=== PATIENT | female | born 2000 | race Caucasian/White ===

== ENCOUNTER 2019-08-10 06:56 | Emergency (ER) | payer OTHER ==
[~2019-08-10] VITALS: Ht 165.1 cm; Wt 72.6 kg
[2019-08-10] MEDS ORDERED: VENLAFAXINE HCL25 MG PO (07:10)
[2019-08-10] MEDS ORDERED: HYDROXYZINE HCL10 MG PO (07:10)
[2019-08-10] MEDS ORDERED: ATIVAN1 MG PO (07:10)
[2019-08-10] MEDS ORDERED: ONDANSETRON ODT8 MG PO (08:45)
[2019-08-10] MEDS ORDERED: NORCO 5-325 TA1 EACH PO (08:45)
--- OUTSIDE RECORDS SUMMARY | 2019-08-10 09:26 | XMS ---
PreManage Notification: AMAN WARREN Security Personnel Worker Events No recent Security Events currently on file [facility] There are no care providers on record at this time. Juancarlos has no Care Guidelines for this patient. Rodrigue VISIT COUNT (12 MO.) 1 [facility] TOTAL 1 NOTE: Visits indicate total known visits. ED/UCC VISIT TRACKING (12 MO.) 08/10/2019 06:56 [facility] TYPE: Emergency COMPLAINT: - FLANK PAIN, VOMITING INPATIENT VISIT TRACKING (12 MO.) No inpatient visits to display in this time frame [email or web address]
== END 2019-08-10 08:59 | disposition home or self-care (01) ==
LOC: ED 06:56
DX: N20.1 Calculus of ureter (principal); Z88.0 Allergy status to penicillin; Z88.5 Allergy status to narcotic agent; Z79.899 Other long term (current) drug therapy
CPT/HCPCS: 80053; 81001; 84703; 85025; 96374; 96375; 99284-25; J1885; J2405

== ENCOUNTER 2019-08-11 21:34 | Emergency (ER) | payer OTHER ==
[~2019-08-11] VITALS: Ht 165.1 cm; Wt 72.6 kg
[~2019-08-11 21:34] MED LIST: ATIVAN1 MG PO; HYDROXYZINE HCL10 MG PO; NORCO 5-325 TA1 EACH PO; ONDANSETRON ODT8 MG PO; VENLAFAXINE HCL25 MG PO
--- OUTSIDE RECORDS SUMMARY | 2019-08-11 21:40 | XMS ---
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 Rodrigue VISIT COUNT (12 MO.) 2 [facility] TOTAL 2 NOTE: Visits indicate total known visits. ED/UCC VISIT TRACKING (12 MO.) 08/11/2019 21:35 [facility] TYPE: Emergency COMPLAINT: - VOMITING,LT HIP PAIN 08/10/2019 06:56 [facility] TYPE: Emergency COMPLAINT: - FLANK PAIN, VOMITING INPATIENT VISIT TRACKING (12 MO.) No inpatient visits to display in this time frame [email or web address]
[2019-08-12] MEDS ORDERED: PERCOCET 5-3251 EACH PO (01:16)
[2019-08-12] MEDS ORDERED: FLOMAX0.4 MG PO (01:16)
== END 2019-08-12 01:29 | disposition home or self-care (01) ==
LOC: ED 21:34
DX: N20.1 Calculus of ureter (principal); Z88.0 Allergy status to penicillin; Z88.5 Allergy status to narcotic agent; Z79.899 Other long term (current) drug therapy
CPT/HCPCS: 74176; 81001; 85025; 96374; 96375; 96376; 99284-25; J1170; J1885; J2405